=== PATIENT | male | born 1975 | race African-American/Black ===

== ENCOUNTER 2017-01-05 19:54 | Emergency (ER) | payer OTHER ==
[~2017-01-05 19:54] MED LIST: HYDRODIURIL 2525 MG PO; LISINOPRIL10 MG PO
[2017-01-05 20:00] VITALS: BP 153/89
--- NOTE | 2017-01-05 20:19 | ED UPPER/LOWER EXTREMITY COMPL ---
History of Present Illness General Chief Complaint: Lower Extremity Problems Stated Complaint: " LUMP ON LT KNEE" Source: patient, old records Exam Limitations: no limitations Vital Signs & Intake/Output Vital Signs & Intake/Output Vital Signs Date Time Temp Pulse Resp B/P B/P Pulse O2 O2 Flow FiO2 Mean Ox Delivery Rate 01/06 2000 97.6 104 15 153/89 96 Room Air Room Air Allergies Coded Allergies: NO KNOWN ALLERGIES (08/30/14) Reconcile Medications Diclofenac Sodium 75 MG TABLET.DR 1 TAB PO BID PRN pain/swelling Hydrochlorothiazide (Hydrodiuril 25 MG Tab) 25 MG TABLET 1 TAB PO DAILY HEART (Reported) Lisinopril 10 MG TABLET 1 TAB PO DAILY HEART (Reported) Triage Note: PT TO ED FOR LEFT KNEE PAIN WITH LUMP X 2 WEEKS. BEEN ICING WITHOUT RELIEF. Triage Nurses Notes Reviewed? yes HPI: Patient is a 41 year old male presents complaining of pain and swelling to left proximal tibial area. Swelling onset 2 weeks ago after he injured himself playing softball. Patient was applying ice to the area and taking Ibuprofen with improvement. Today patient was playing softball and reports that the swelling and pain increased. Pain is mild at rest. Worsens with palpation and walking. Denies decreased range of motion of his left lower extremity, numbness , weakness, head injury, neck pain, back pain. (MARYA BROWN) Past History Travel History Traveled to [place] past 21 day No Medical History Any Pertinent Medical History? 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 No (MARYA BROWN) Review of Systems Review of Systems Constitutional: Reports: no symptoms. Cardiovascular: Denies: chest pain. Gastrointestinal/Abdominal: Denies: abdominal pain. Musculoskeletal: Reports: see HPI. Denies: back pain, neck pain. Skin: Denies: rash. Neurological/Psychological: Denies: numbness, paresthesia, unable to move lower ext. Hematologic/Endocrine: Denies: bruising, bleeding. Immunological: Denies: splenectomy. (MARYA BROWN) Physical Exam Physical Exam General Appearance: well developed/nourished, alert, awake Head: atraumatic, normal appearance Eyes: Bilateral: normal appearance, PERRL, EOMI. Ears, Nose, Throat: hearing grossly normal Neck: normal inspection, supple, full range of motion Cardiovascular/Respiratory: no respiratory distress Peripheral Pulses: 2+ dorsalis pedis (L) Back: normal inspection, normal range of motion Leg Left: normal range of motion, swelling and mild tenderness over the anterior proximal tibia. No erythema, no fluctuance or induration. Knee Left: normal range of motion, normal inspection, no patellar tenderness. Joint stable Foot Left: normal inspection, normal range of motion Neurologic/Tendon: normal sensation, normal motor functions, normal tendon functions Skin: normal color, warm/dry (MARYA BROWN) Progress Differential Diagnosis: contusion, fracture, sprain, tendon injury Plan of Care: Orders Procedure Date/time Status XRY-KNEE, LEFT 01/06 2024 Active 2100: Results of x-rays discussed with patient. Patient ambulating without difficulty. Appears stable for discharge and if no improvement orthopedic follow up. (MARYA BROWN) Diagnostic Imaging: Viewed by Me: Radiology Read. Discussed w/RAD: Radiology Read. Radiology Impression: PATIENT: AGAPITO FAITH PRESENT AGE: 41 PATIENT ACCOUNT NO: [id number] : 75 LOCATION: [facility] ORDERING PHYSICIAN: MARYA MOORE SERVICE DATE: 01/05/17-2023 EXAM TYPE: RAD - XRY-KNEE, LEFT EXAMINATION: XR KNEE, LEFT CLINICAL INFORMATION: Proximal tibia swelling and tenderness. Fall 2 weeks ago. COMPARISON: None TECHNIQUE: Four views of the left knee. FINDINGS: Bones and soft tissues are normal. No fracture or joint effusion. Alignment is anatomic. Joint spaces are well maintained. No abnormal soft tissue calcification. IMPRESSION: Normal left knee. DICTATED BY: MAHESH MURDOCK MD DATE/TIME DICTATED:01/05/172054 MANAGER LINUX:TAMIR DATE/TIME TRANSCRIBED:01/05/172054 CONFIDENTIAL, DO NOT COPY WITHOUT APPROPRIATE AUTHORIZATION. <Electronically signed in Other Vendor System> SIGNED BY: MAHESH MURDOCK MD 01/05/172099 (MARYA BROWN) Departure Departure Time of Disposition: 2103 Disposition: HOME OR SELF CARE Condition: Stable Clinical Impression Primary Impression: Knee pain, acute Qualifiers: Laterality: left Qualified Code: M25.562 - Pain in left knee Referrals: SOPHIE CONTI,GEMINI Nascimento (PCP/Family) LIYAH CONTI,GENESIS Additional Instructions: Follow up with Dr. Vargas(orthopedist) for further evaluation if no improvement within 2-3 days. Rest, elevate, ice to the affected area for 10-20 minutes every 1-2 hours. Departure Forms: Customer Survey General Discharge Information Prescriptions: Current Visit Scripts Diclofenac Sodium 1 TAB PO BID PRN pain/swelling #15 TAB (SHERIF MOORE,MARYA) PA/PASSPORT SUPPORT MANAGER Co-Sign Statement Statement: ED Attending supervision documentation- [] I saw and evaluated the patient. I have also reviewed all the pertinent lab results and diagnostic results. I agree with the findings and the plan of care as documented in the PA's/PASSPORT SUPPORT MANAGER's documentation. [X] I have reviewed the ED Record and agree with the PA's/PASSPORT SUPPORT MANAGER's documentation. [] Additions or exceptions (if any) to the PAs/PASSPORT SUPPORT MANAGER's note and plan are summarized below: [] (LE CONTI,RASHAD)
--- NOTE | 2017-01-05 21:00 | RADIOLOGY REPORT ---
EXAMINATION: XR KNEE, LEFT CLINICAL INFORMATION: Proximal tibia swelling and tenderness. Fall 2 weeks ago. COMPARISON: None TECHNIQUE: Four views of the left knee. FINDINGS: Bones and soft tissues are normal. No fracture or joint effusion. Alignment is anatomic. Joint spaces are well maintained. No abnormal soft tissue calcification. IMPRESSION: Normal left knee.
[2017-01-05] MEDS ORDERED: DICLOFENAC SODI75 M2 PO (21:05)
== END 2017-01-05 21:18 ==
LOC: ERH 19:54
DX: M25.562 Pain in left knee (principal)
CPT/HCPCS: 73560-LT